=== PATIENT | male | born 1965 | race Caucasian/White ===

== ENCOUNTER → 2016-03-15 | Outpatient (CLI) | payer OTHER ==
[~2016-03-15] MED LIST: ADV250INH INH; ALBU0.084 IN; ALBU0.63 INH; ALBU17IN INH; AMLO25TA PO; AMOX875T PO; BENA25TA PO; CAPTO25TA PO; CITA20TA4 PO; DIPH50TA4 PO; DOXY150C PO; FLUT22IN INH; LASI20TA PO; LOSA100T36 PO; MOBI15TA PO; MUCI600T34 PO; NEUR300C PO; NICO14PA EXT; NICO21PAT TD; NORC5TAB PO; OMEP10CASR PO; PRED20TA PO; PRED5SOL2 PO; PROZ10CA7 PO; SOMA350T PO; SYMB80AE IN; TIOT18INH INH; TIZA2CAP3 PO; TYLE325T5 PO; nebulizer; spiriva INH
[2016-03-15 14:35] LABS: BASO # 0.1 K/mm3 (0.0-0.2); BASO % 1.1 % (0.0-1.0); EOS # 0.2 K/mm3 (0.0-0.50); EOS % 2.5 % (0.0-3.0); LYMPH # 2.5 K/mm3 (1.5-4.5); LYMPH % 24.2 % (24.0-44.0); MEAN CORPUSCULAR HEMOGLOBIN 30.1 pg (27.0-33.0); MEAN CORPUSCULAR HGB CONC 32.9 g/dl (32.0-36.5); MEAN CORPUSCULAR VOLUME 91.4 fl (80.0-96.0); MONO # 0.7 K/mm3 (0.0-0.8); MONO % 6.5 % (0.0-5.0); NEUTROPHILS # 6.6 K/mm3 (1.8-7.7); NEUTROPHILS % 63.6 % (36.0-66.0); RED CELL DISTRIBUTION WIDTH 13.3 % (11.5-14.5); WHITE BLOOD COUNT 10.3 K/mm3 (4.0-10.0)
[2016-03-15 15:25] LABS: ALBUMIN 3.5 GM/DL (3.2-5.2); ALBUMIN/GLOBULIN RATIO 1.06 (1.00-1.93); ALKALINE PHOSPHATASE 80 U/L (45-117); ALT/SGPT 28 U/L (12-78); ANION GAP 6 MEQ/L (8-16); AST/SGOT 14 U/L (15-37); BILIRUBIN,TOTAL 0.3 MG/DL (0.2-1.0); BLOOD UREA NITROGEN 12 MG/DL (7-18); CALCIUM LEVEL 9.3 MG/DL (8.5-10.1); CARBON DIOXIDE LEVEL 33 MEQ/L (21-32); CHLORIDE LEVEL 107 MEQ/L (98-107); CHOLESTEROL LEVEL 137 MG/DL (<200); CREATININE FOR GFR 0.98 MG/DL (0.70-1.30); GLOMERULAR FILTRATION RATE > 60.0 (>56); GLUCOSE, FASTING 114 MG/DL (70-105); POTASSIUM SERUM 4.2 MEQ/L (3.5-5.1); SODIUM LEVEL 146 MEQ/L (136-145); TOTAL PROTEIN 6.8 GM/DL (6.4-8.2); TRIGLYCERIDES LEVEL 144 MG/DL (<150)
--- NOTE | 2016-03-15 16:43 | REP ---
MRI right knee without contrast, 03/15/2016 Indication: Knee pain Comparison: Three view right knee series 02/15/2016. Findings: Medial and lateral patellar retinacula are intact. Very minimal chondromalacia patella is identified. The patellar and quadriceps tendons are intact. The anterior and posterior cruciate ligaments are intact. The medial and lateral collateral ligament complexes are intact. There is a small to moderate joint effusion, most pronounced in suprapatellar bursa , and also seen posterior to the knee as well. Minimal focus of intermediate signal intensity is seen within the periphery posterior horn medial meniscus abutting the inferior articular surface consistent with a very small tear and/or degenerative signal. The lateral meniscus is unremarkable. There is no fracture or bone marrow edema. Impression 1. Small focus of degenerative signal of 3 x 2 mm maximal dimension along the inferior aspect within the periphery of the posterior horn of medial meniscus. This is consistent with tiny inferior peripheral meniscal tear versus meniscal degenerative signal. Clinical correlation is recommended. 2. Small to moderate joint effusion. 3. Minimal chondromalacia patella Signed by Christie Haley MD 03/16/2016 07:59 P
== END ==
LOC: M RAD 13:40
PROVIDERS: ATTEND Physician Assistant Medical
DX: M25.461 Effusion, right knee (principal); R93.8 Abnormal findings on diagnostic imaging of other specified body structures; E11.9 Type 2 diabetes mellitus without complications

== ENCOUNTER → 2016-04-12 | Outpatient (CLI) | payer OTHER ==
[~2016-04-12] MED LIST changes: -BENA25TA PO; +BENA25TA9 PO
--- NOTE | 2016-04-13 03:00 | REP ---
Clinical: Pain with recent trauma/fall Technique: AP, lateral, bilateral oblique views left hand . Findings: The osseous structures and joint spaces are intact and normal. There is no evidence for acute fracture or dislocation. Old healed fifth metacarpal bone fracture noted. Surrounding soft tissues are unremarkable. No subcutaneous emphysema or radiodense foreign body. Impression: Old boxers fracture. No acute fracture or dislocation. Signed by Pako Santoyo MD 04/13/2016 02:52 A
== END ==
LOC: M RAD 15:52
PROVIDERS: ATTEND Physician Assistant Medical
DX: M79.642 Pain in left hand (principal); Z87.81 Personal history of (healed) traumatic fracture

== ENCOUNTER → 2016-06-26 | Outpatient (CLI) | payer OTHER ==
[~2016-06-26] MED LIST changes: +NORC1TAB4 PO; -NORC5TAB PO
[2016-06-26 12:10] LABS: BASO # 0.1 K/mm3 (0.0-0.2); BASO % 0.8 % (0.0-1.0); EOS # 0.3 K/mm3 (0.0-0.50); EOS % 2.7 % (0.0-3.0); LYMPH # 2.4 K/mm3 (1.5-4.5); LYMPH % 22.7 % (24.0-44.0); MEAN CORPUSCULAR HEMOGLOBIN 30.1 pg (27.0-33.0); MEAN CORPUSCULAR HGB CONC 33.5 g/dl (32.0-36.5); MEAN CORPUSCULAR VOLUME 89.9 fl (80.0-96.0); MONO # 0.7 K/mm3 (0.0-0.8); MONO % 7.4 % (0.0-5.0); NEUTROPHILS # 6.2 K/mm3 (1.8-7.7); NEUTROPHILS % 64.2 % (36.0-66.0); RED CELL DISTRIBUTION WIDTH 13.6 % (11.5-14.5); WHITE BLOOD COUNT 9.7 K/mm3 (4.0-10.0)
[2016-06-26 12:54] LABS: ALBUMIN 3.7 GM/DL (3.2-5.2); ALBUMIN/GLOBULIN RATIO 1.19 (1.00-1.93); ALKALINE PHOSPHATASE 74 U/L (45-117); ALT/SGPT 25 U/L (12-78); ANION GAP 8 MEQ/L (8-16); AST/SGOT 18 U/L (15-37); BILIRUBIN,TOTAL 0.5 MG/DL (0.2-1.0); BLOOD UREA NITROGEN 11 MG/DL (7-18); CALCIUM LEVEL 8.8 MG/DL (8.5-10.1); CARBON DIOXIDE LEVEL 29 MEQ/L (21-32); CHLORIDE LEVEL 106 MEQ/L (98-107); CHOLESTEROL LEVEL 127 MG/DL (<200); CREATININE FOR GFR 0.98 MG/DL (0.70-1.30); GLOMERULAR FILTRATION RATE > 60.0 (>56); GLUCOSE, FASTING 99 MG/DL (70-105); SODIUM LEVEL 143 MEQ/L (136-145); TOTAL PROTEIN 6.8 GM/DL (6.4-8.2); TRIGLYCERIDES LEVEL 133 MG/DL (<150)
== END ==
LOC: M LAB 11:12
PROVIDERS: ATTEND Physician Assistant Medical
DX: E11.9 Type 2 diabetes mellitus without complications (principal)

== ENCOUNTER → 2016-06-29 | Outpatient (CLI) | payer OTHER ==
--- NOTE | 2016-07-01 15:08 | SLEEPHOME ---
DATE OF PROCEDURE: 06/29/2016 ORDERED BY: Dr. Hopkins Diagnostic home sleep testing was performed due to concern for the obstructive sleep apnea syndrome in this patient with a history of excessive somnolence and nonrestorative sleep. For testing, a NOX-T3 respiratory monitoring device was used. Continuous record was made of pulse, oxygen saturation, airflow, chest and abdominal strain, and body position. 9 hours and 59 minutes of data were reviewed. Of these, 5 hours and 25 minutes were marked as time in bed. During the interval marked time in bed, there were 104 respiratory events identified of 10 seconds in duration or greater for a respiratory event index of 19.2. The events identified were primarily obstructive. The patient dislodged the pulse oximetry probe. Testing was performed in both the supine and non-supine positions. IMPRESSION: Abnormal home sleep testing with repetitive respiratory events and respiratory event index of 19.2 is consistent with the obstructive sleep apnea syndrome. RECOMMENDATION: The patient should be encouraged to undergo formal sleep evaluation and in-laboratory pressure titration.
== END ==
LOC: M SLEEP HO 13:34
PROVIDERS: ATTEND Internal Medicine Pulmonary Disease
DX: J44.9 Chronic obstructive pulmonary disease, unspecified (principal)

== ENCOUNTER → 2016-11-14 | Outpatient (CLI) | payer OTHER ==
[~2016-11-14] MED LIST changes: +BENA25TA10 PO; -BENA25TA9 PO
[2016-11-14 12:30] LABS: BASO # 0.1 K/mm3 (0.0-0.2); BASO % 0.6 % (0.0-1.0); EOS # 0.2 K/mm3 (0.0-0.50); EOS % 0.9 % (0.0-3.0); LYMPH # 3.3 K/mm3 (1.5-4.5); LYMPH % 21.7 % (24.0-44.0); MEAN CORPUSCULAR HEMOGLOBIN 30.8 pg (27.0-33.0); MEAN CORPUSCULAR VOLUME 93.5 fl (80.0-96.0); MONO # 0.7 K/mm3 (0.0-0.8); MONO % 4.3 % (0.0-5.0); NEUTROPHILS # 10.8 K/mm3 (1.8-7.7); NEUTROPHILS % 70.5 % (36.0-66.0); RED CELL DISTRIBUTION WIDTH 13.3 % (11.5-14.5); WHITE BLOOD COUNT 15.4 K/mm3 (4.0-10.0)
[2016-11-14 13:10] LABS: ALBUMIN 3.7 GM/DL (3.2-5.2); ALBUMIN/GLOBULIN RATIO 1.12 (1.00-1.93); ALKALINE PHOSPHATASE 65 U/L (45-117); ALT/SGPT 32 U/L (12-78); ANION GAP 8 MEQ/L (8-16); AST/SGOT 15 U/L (15-37); BILIRUBIN,TOTAL 0.4 MG/DL (0.2-1.0); BLOOD UREA NITROGEN 15 MG/DL (7-18); CALCIUM LEVEL 9.3 MG/DL (8.5-10.1); CARBON DIOXIDE LEVEL 32 MEQ/L (21-32); CHLORIDE LEVEL 105 MEQ/L (98-107); CHOLESTEROL LEVEL 139 MG/DL (<200); CREATININE FOR GFR 0.98 MG/DL (0.70-1.30); GLOMERULAR FILTRATION RATE > 60.0 (>56); GLUCOSE, FASTING 109 MG/DL (70-105); SODIUM LEVEL 145 MEQ/L (136-145); TRIGLYCERIDES LEVEL 147 MG/DL (<150)
== END ==
LOC: M LAB 11:44
PROVIDERS: ATTEND Physician Assistant Medical
DX: E11.9 Type 2 diabetes mellitus without complications (principal)

== ENCOUNTER → 2016-11-24 | Outpatient (CLI) | payer OTHER ==
--- NOTE | 2016-11-27 08:48 | REP ---
Cervical spine MRI study without contrast: History: Neck pain. Comparison MRI study August 30, 2015. Comparison radiographs April 15, 2014. Technique: Sagittal and axial T1 and T2-weighted scans are acquired in the usual fashion with and without fat saturation. Sequences include spin echo, turbo spin-echo, and STIR imaging sequences. MRI findings: There is straightening of the normal cervical lordosis as before. The spinal canal is diffusely and developmentally somewhat narrowed from the C2-3 through the C6-7 disc levels. This is unchanged. At C2-3, axial and sagittal images demonstrate no evidence of disc protrusion. There is left-sided uncovertebral spurring producing mild neural foraminal encroachment. This is unchanged. At C3-4, there is mild left-sided uncovertebral spurring also noted. This effaces the left ventral CSF. Question left neural foraminal narrowing. At C4-5, there is mild central canal stenosis. Mid sagittal dimension of the thecal sac is 9 mm. No disc protrusion is seen. There is mild bilateral uncovertebral spurring, right greater than left. At C5-6, there is mild developmental central canal stenosis. Mid sagittal canal dimensions at C5-6 is 9.6 mm. There is mild diffuse disc bulging. No uncovertebral spurring is seen. At C6-C7, there is a broad based disc bulge which is moderate and associated with some osteophytic ridging. This effaces the ventral subarachnoid space and appears to flatten the ventral margin of the cord. The CSF signal is effaced ventrally and dorsally on axial T2-weighted scans. Mid sagittal dimension of the thecal sac is 8 mm consistent with mild central canal stenosis. There is mild bilateral uncovertebral spurring, right a little more prominent than left. At C7-T1, there is no significant finding. Impression: Congenitally narrow central canal. Moderate disc bulge and osteophyte formation C6-7 producing mild central canal stenosis. Mild central canal stenosis is also noted at C5-6 and C4-5, but this is less prominent. Multilevel uncovertebral spurring as above. Signed by Michele Chairez MD 11/24/2016 03:21 P
== END ==
LOC: M RAD 08:14
PROVIDERS: ATTEND Physician Assistant Medical
DX: Q76.49 Other congenital malformations of spine, not associated with scoliosis (principal); M50.221 Other cervical disc displacement at C4-C5 level; M50.223 Other cervical disc displacement at C6-C7 level; M25.78 Osteophyte, vertebrae